=== PATIENT | female | born 1965 | race Caucasian/White ===

== ENCOUNTER → 2019-06-01 15:21 | Outpatient (CLI) | payer BC, SELFPAY | PROVIDERS: Visit Provider Nurse Practitioner | DX: J02.9 Acute pharyngitis, unspecified (principal) | CPT/HCPCS: 87070; 87077; 87147 ==

== ENCOUNTER → 2022-07-20 08:40 | Outpatient (CLI) | payer BC, SELFPAY ==
--- NOTE | 2022-07-20 | DI.MG.S_ITS ---
BILATERAL DIGITAL SCREENING MAMMOGRAM 3D/2D WITH CAD: 07/20/2022 CLINICAL: Routine screening. Family history of breast cancer. Comparison is made to exams dated: 07/22/2016 mammogram and 12/20/2008 mammogram - [facility]. Both breasts are heterogeneously dense, which may obscure small masses (category c / 51-75% glandular tissue). Current study was also evaluated with a Computer Aided Detection (CAD) system. There are benign calcifications in both breasts. No significant masses, calcifications, or other findings are seen in either breast. There has been no significant interval change. IMPRESSION: BENIGN There is no mammographic evidence of malignancy. A 1 year screening mammogram is recommended. Based on Tyrer-Cuzick model (a risk assessment model), the patient's lifetime risk is 25.6% and her 10 year risk is 8.3%. If a patient has an elevated risk, a more comprehensive evaluation should be considered and/or a referral to a genetic counselor. The [employer], [employer], and NCCN Guidelines advise the consideration of Breast MRI as an adjunct to screening mammography in patients whose Lifetime risk to develop breast cancer is 20% or higher. This exam was interpreted at Station ID: [id number]. NOTE: For mammograms, a report in lay terms will be sent to the patient. Approximately 15% of breast malignancies will not be visualized mammographically. In the management of a palpable breast mass, a negative mammogram must not discourage biopsy of a clinically suspicious lesion. Electronically Signed By: Sayra garcia/bhavesh:07/20/2022 16:55:10 letter sent: Normal Exam ACR BI-RADS Category 2: Benign Finding(s) 3342F
== END ==
PROVIDERS: Referring Provider Naturopath; Visit Provider Naturopath
DX: Z12.31 Encounter for screening mammogram for malignant neoplasm of breast (principal); Z80.3 Family history of malignant neoplasm of breast
CPT/HCPCS: 77063; 77067

== ENCOUNTER → 2023-04-30 10:45 | Outpatient (CLI) | payer BC, SELFPAY ==
--- NOTE | 2023-04-30 | DI.MRI.S_ITS ---
PROCEDURE: MR KNEE LT WO CON INDICATIONS: Unspecified internal derangement of left knee TECHNIQUE: Noncontrast sagittal PD fast spin echo and T2 fast spin echo with fat saturation, sagittal 3-D FLASH with fat saturation; coronal T1 spin echo and PD fast spin echo with fat saturation, and axial PD fast spin echo with fat saturation through the knee. COMPARISON: [facility] [place] Waldo, CR, XR KNEE 4+ VIEWS LEFT, 03/25/2023, 9:38. FINDINGS: Image quality: Excellent. Anterior cruciate ligament: Intact. Posterior cruciate ligament: Intact. Medial collateral ligament: Mild thickening of the proximal medial collateral ligament without surrounding edema is consistent with remote prior low-grade sprain. Lateral collateral ligament: Intact. Medial meniscus: Suspected small peripheral horizontal oblique tear of the body of the medial meniscus extending to the outer third of the tibial articular surface. Lateral meniscus: There is a superiorly displaced meniscal flap tear at the body of the lateral meniscus with a small amount of meniscal tissue extending into the lateral femoral gutter. Medial and lateral tendons: The semimembranosus tendon insertions appear intact. Visualized portions of the pes anserinus tendons appear normal. The popliteus tendon is intact. Iliotibial band appears normal. Anterior structures: The quadriceps and patellar tendons appear intact. No patellar subluxation. No femoral trochlear dysplasia or ventral trochlear prominence. No edema in the infrapatellar fat pad. Bones and cartilage: No bone marrow contusions or fractures. Medial femorotibial cartilage: Mild grade 2 cartilage thinning and irregularity in the weight-bearing portion of the medial compartment. Lateral femorotibial cartilage: Full-thickness cartilage defect is seen in the central weight-bearing portion of the lateral tibial plateau measuring approximately 10 x 11 mm with moderate adjacent subchondral edema. There is mild background chondromalacia in the lateral compartment. Patellofemoral cartilage: High-grade cartilage irregularity is seen at the trochlear groove. There is mild surface cartilage irregularity at the medial patellar facet and medial femoral trochlea. Soft tissues: A small joint effusion is present. No definite intra-articular loose body is seen. There is a small medial popliteal cyst with surrounding edema that may indicate prior cyst rupture. Small 8 mm ganglion cyst is seen adjacent to the origin of the medial head of the gastrocnemius muscle. The musculature surrounding the knee is normal in bulk. IMPRESSION: 1. Full-thickness cartilage defect in the central weight-bearing portion of the lateral tibial plateau with moderate subchondral edema. No definite intra-articular loose body is seen. 2. 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 3. Superiorly displaced meniscal flap tear of the body of the lateral meniscus with meniscal tissue extending into the lateral femoral gutter. 4. Suspected small peripheral horizontal oblique tear of the body of the medial meniscus extending to the outer third of the tibial articular surface. 5. Remote prior grade 1 sprain of the proximal medial collateral ligament. 6. Small joint effusion. Small medial popliteal cyst with signs of prior cyst rupture. Approved by: Edgard Recinos M.D. on 05/02/2023 at 11:43
== END ==
LOC: MRI 10:46
PROVIDERS: Referring Provider Orthopaedic Surgery Foot and Ankle Surgery; Visit Provider Orthopaedic Surgery Foot and Ankle Surgery
DX: S83.282A Other tear of lateral meniscus, current injury, left knee, initial encounter (principal); S83.412A Sprain of medial collateral ligament of left knee, initial encounter; M22.42 Chondromalacia patellae, left knee; M25.462 Effusion, left knee; M71.22 Synovial cyst of popliteal space [Baker], left knee; M23.92 Unspecified internal derangement of left knee
CPT/HCPCS: 73721

== ENCOUNTER → 2023-10-19 14:45 | Outpatient (CLI) | payer BC, SELFPAY ==
--- NOTE | 2023-10-19 | DI.MRI.S_ITS ---
BREAST MRI OF BOTH BREASTS: 10/19/2023 CLINICAL: High Risk. TECHNIQUE: The patient was placed prone in a dedicated breast imaging coil. Precontrast axial STIR and 3D FLASH without fat saturation sequences were obtained. Both before and after bolus injection of contrast, sequential 1-minute axial 3D FLASH with fat saturation sequences for 3 time points, with subtraction images and maximum intensity projections (MIP's) generated. Delayed sagittal FLASH images with fat saturation were also obtained. 20 cc ProHance IV contrast Computer-aided detection, including computer algorithm analysis of MRI image data for lesion detection and characterization, pharmacokinetic analysis, with further physician review for interpretation, was performed. COMPARISON: [facility], , MM SCREENING MAMMO BI, 07/20/2022, 8:50. FINDINGS: Image quality: Diagnostic Right breast: Minor background parenchymal enhancement. No suspicious mass or non masslike enhancement. Left breast: Mild background parenchymal enhancement. No suspicious mass or non masslike enhancement. Miscellaneous: No axillary or internal mammary chain adenopathy. The visible portions of the chest wall, liver, heart, and lungs appear normal. IMPRESSION: NEGATIVE No MR evidence of malignancy in either breast. No suspicious adenopathy. Continue mammogram and MRI screening alternating every six months. BIRADS one, negative COMMENT: The imaging literature indicates that a negative contrast breast MRI examination has a high sensitivity and a moderate specificity for detecting and excluding invasive carcinomas to a detection threshold of 3-5 mm; nonetheless, appropriate clinical and mammographic follow-up are recommended. MRI is not sensitive for detecting DCIS (ductal carcinoma in situ) and may not detect large invasive neoplasms that show only minimal enhancement such as mucinous carcinoma. If there are suspicious calcifications or clinically worrisome palpable masses, then biopsy should still be considered. Invasive neoplasms can be hidden by co-existent and benign enhancement caused by mastitis, hormone therapy effects, radiation therapy, , and recent biopsy or surgery. False positive examinations can occur in a number of circumstances, including breasts that have recently been subject to invasive procedures and those that contain atypical ductal hyperplasia, hormonally stimulated glandular tissue, fat necrosis, or radial scars. This exam was interpreted at Station ID: [id number]. Electronically Signed By: Micheline ayala/:10/20/2023 17:44:34 letter sent: Normal Exam ACR BI-RADS Category 1: Negative 3341F
== END ==
PROVIDERS: Referring Provider Nurse Practitioner Family; Visit Provider Nurse Practitioner Family
DX: Z12.39 Encounter for other screening for malignant neoplasm of breast (principal)
CPT/HCPCS: 77049; A9579

== ENCOUNTER → 2024-08-08 11:07 | Outpatient (CLI) | payer BC, SELFPAY ==
--- NOTE | 2024-08-08 11:08 | DI.MG.S_ITS ---
MM screening mammo BI: 08/08/2024. BI-RADS: 1 CLINICAL: 58-year old female for bilateral screening mammogram. Tyrer-Cuzick lifetime risk of 20.5%. No personal or first-degree family history of breast cancer. Current reported family history of breast cancer: maternal grandmother, paternal grandmother and paternal aunt. PRIOR EXAMS 10/19/2023, 07/20/2022, 07/22/2016. MAMMOGRAPHY TECHNIQUE: 2D and 3D (tomosynthesis) digital mammographic views obtained, with additional images as needed for full coverage. Current study was also evaluated with a Computer Aided Detection (CAD) system. DENSITY C. The breasts are heterogeneously dense, which may obscure small masses. MAMMOGRAPHY FINDINGS Bilateral: No suspicious mass, asymmetry, microcalcification, or other abnormality seen. IMPRESSION: * No evidence of malignancy. RECOMMENDATIONS Bilateral * According to the Tyrer-Cuzick Risk Assessment Model, based on the information provided your patient has a greater than 20% lifetime risk for developing breast cancer. Consider supplemental screening with breast MRI and participation in a high risk screening program. * Annual screening mammography. OVERALL ASSESSMENT CATEGORY BI-RADS-1: Negative. The [employer] recommends annual screening mammography beginning at age 40 for women with average risk of breast cancer. ELECTRONICALLY SIGNED: Skye Mast M.D. on 08/08/2024 at 05:28:25 PM PT Interpreting Station ID: [id number]
== END ==
PROVIDERS: PCP Naturopath; Referring Provider Naturopath; Visit Provider Naturopath
DX: Z12.31 Encounter for screening mammogram for malignant neoplasm of breast (principal); Z80.3 Family history of malignant neoplasm of breast
CPT/HCPCS: 77063; 77067

== ENCOUNTER → 2024-10-29 09:42 | Outpatient (CLI) | payer BC, SELFPAY ==
--- NOTE | 2024-10-29 09:44 | DI.RAD.S_ITS ---
PROCEDURE: XR KNEE RT 3V INDICATIONS: Right knee strain TECHNIQUE: 3 views of the knee were acquired. COMPARISON: None. FINDINGS: Bones: No fractures or dislocations. No suspicious bony lesions. Tricompartmental osteophytosis of the medial tibiofemoral compartment and patellofemoral compartment. Soft tissues: No joint effusion. No suspicious soft tissue calcifications. IMPRESSION: No acute bony abnormality or significant effusion. Mild bicompartmental osteoarthritis. Dictated by: Dillon Joiner M.D. on 10/29/2024 at 11:30 Approved by: Dillon Joiner M.D. on 10/29/2024 at 11:30
== END ==
PROVIDERS: PCP Naturopath; Referring Provider Nurse Practitioner Family; Visit Provider Nurse Practitioner Family
DX: S86.919A Strain of unspecified muscle(s) and tendon(s) at lower leg level, unspecified leg, initial encounter (principal); M17.11 Unilateral primary osteoarthritis, right knee; X58.XXXA Exposure to other specified factors, initial encounter
CPT/HCPCS: 73562

== ENCOUNTER → 2025-02-19 11:56 | Outpatient (CLI) | payer BC, SELFPAY ==
--- NOTE | 2025-02-19 11:58 | DI.MRI.S_ITS ---
MR breast BI wo/w con: 02/19/2025. BI-RADS: 1 CLINICAL: 59-year old female for bilateral diagnostic breast MRI. No personal or first-degree family history of breast cancer. Current reported family history of breast cancer: maternal grandmother, paternal grandmother and paternal aunt. PRIOR EXAMS Mammogram(s): 08/08/2024. Three Other Exams on 10/19/2023, 07/20/2022, 07/22/2016. MRI TECHNIQUE Bilateral breast MRI was performed on a 1.5 Donna magnet using a dedicated breast coil with mild compression. Axial T1 and T2 STIR sequences were obtained. Dynamic contrast enhanced VIBRANT fat-suppressed sequences were obtained. Delayed sagittal high resolution or sagittal reconstructed isotropic sequence was also obtained. Subtraction images and maximum intensity projection images were obtained. The study was evaluated using [id number] software. Gadavist was injected intravenously: mL. IV Contrast: 20 ml ProHance. FIBROGLANDULAR TISSUE Bilateral: B. Scattered fibroglandular tissue. BACKGROUND PARENCHYMAL ENHANCEMENT Bilateral: Mild symmetrical background parenchymal enhancement. BREAST FINDINGS Bilateral: No suspicious mass, suspicious non-mass enhancement, or other concerning finding identified. No significant change since previous exam(s). CHEST FINDINGS No axillary or internal mammary chain adenopathy. No abnormality seen in the visible portions of the heart, lungs, chest wall, and liver. IMPRESSION: * No evidence of malignancy. RECOMMENDATIONS Bilateral * Breast MRI screening in one year as an adjunct to mammography. * Annual screening mammography in six months. OVERALL ASSESSMENT CATEGORY BI-RADS-1: Negative. ELECTRONICALLY SIGNED: Micheline Martino M.D. on 02/20/2025 at 09:24:31 AM PT Interpreting Station ID: [id number]
== END ==
LOC: MRI 11:56
PROVIDERS: PCP Naturopath; Referring Provider Naturopath; Visit Provider Naturopath
DX: R92.323 Mammographic fibroglandular density, bilateral breasts (principal); Z80.3 Family history of malignant neoplasm of breast
CPT/HCPCS: 77049; A9579